=== PATIENT | female | born 1965 | race Caucasian/White ===

== ENCOUNTER 2018-02-13 19:30 | Outpatient (CLI) | payer OTHER | END 2018-02-13 19:31 | disposition home or self-care (01) | LOC: SLEEPLAB 19:30 | PROVIDERS: ATTEND Family Medicine | DX: G47.33 Obstructive sleep apnea (adult) (pediatric) (principal); K21.9 Gastro-esophageal reflux disease without esophagitis; G47.10 Hypersomnia, unspecified; G47.00 Insomnia, unspecified; R06.83 Snoring; Z68.31 Body mass index [BMI] 31.0-31.9, adult | CPT/HCPCS: 95811 ==

== ENCOUNTER 2018-08-28 07:02 | Outpatient (CLI) | payer OTHER ==
[2018-08-28] MEDS ORDERED: Gadobenate Dimeglumine 529 MG/1 ML (20ML VIAL) ONE (09:00)
--- NOTE | 2018-08-28 09:19 | RAD ---
CERVICAL SPINE 3 VIEWS: HISTORY: Neck pain with bilateral shoulder and arm pain. Postop surgical change. COMPARISON: 10/27/2017. FINDINGS: Three views of the cervical spine are performed. Anterior fusion changes are noted at C5-C6 and C6-C 7, stable from prior study. No significant malalignment. There are some generalized spondylosis duane nges. No prevertebral swelling. The tip of the odontoid and portions of C1 are obscured on the AP o pen mouth view. No abnormal prevertebral soft tissue swelling. IMPRESSION: Stable postoperative changes at C5-C6 and C6-7. Generalized spondylosis. POS: GUERRERO
--- NOTE | 2018-08-28 10:34 | MRI ---
MRI OF CERVICAL SPINE WITH AND WITHOUT CONTRAST: DATE: 08/28/2018. COMPARISON: None. HISTORY: Cervical spondylosis with myelopathy, neck pains, spasm, numbness and tingling in bilateral upper ext remities. TECHNIQUE: Multiplanar, multisequence MR imaging of cervical spine obtained with and without contrast. FINDINGS: The sagittal STIR imaging is limited secondary to patient motion artifact. No focal area of osseous marrow edema noted on sagittal STIR imaging. Postoperative hardware with associated artifact noted at C-6 and C6-7. Straightening of normal cervical lordosis noted. No anterolisthesis or retrolisthesis. No preverteb ral soft tissue abnormality. Craniocervical junction appears unremarkable. There is mild degenerative change at the atlantoaxial interspace. C2-3: No significant central canal or neural foraminal stenosis. C3-4: No central canal or neural foraminal stenosis. C4-5: Mild disk space narrowing and mild disk bulge. No significant central canal or neural foramin al stenosis. C5-6: Minimal disk bulge with no significant central canal or neural foraminal stenosis. C6-7: Bilateral uncovertebral osteophyte formation, left greater than right. Mild bilateral neural foraminal stenosis. C7-T1: Mild disk bulge. Mild bilateral facet hypertrophy. No significant central canal or neural f oraminal stenosis. No focal area of abnormal signal intensity identified within the cervical cord. Postcontrast imaging demonstrates no abnormal enhancement involving the contents of the thecal sac, t he imaged osseous structures, or the intervertebral disks. IMPRESSION: Postoperative changes within the cervical spine as above. No significant central canal or neural for aminal stenosis noted. POS: GUERRERO
== END 2018-08-28 07:03 | disposition home or self-care (01) ==
LOC: SCSMRI 07:02
PROVIDERS: ATTEND Neurological Surgery
DX: M47.12 Other spondylosis with myelopathy, cervical region (principal); Z98.890 Other specified postprocedural states
CPT/HCPCS: 72040; 72156

== ENCOUNTER 2019-11-09 09:26 | Outpatient (CLI) | payer OTHER ==
--- NOTE | 2019-11-09 12:20 | MRI ---
MRI LUMBAR SPINE WITHOUT CONTRAST: Date: 11/09/2019 COMPARISON: None. HISTORY: Low back pain with radiculopathy involving bilateral hips and buttocks. TECHNIQUE: Multiplanar, multisequence MR imaging of lumbar spine obtained without contrast. FINDINGS: The sagittal STIR imaging demonstrates no focal area of osseous marrow edema. Lumbar vertebral body height and alignment appears within normal limits. On the basis of five lumbar-type vertebral bodies, the conus medullaris terminates at the T12-L1 leve l. T12-L1: Intervertebral disc height and signal intensity within normal limits with no significant cent ral canal or neural foraminal stenosis. L1-2: Intervertebral disc height and signal intensity within normal limits. No significant central c anal or neural foraminal stenosis. L2-3: Mild bilateral facet hypertrophy. Intervertebral disc height and signal intensity within lauren l limits with no significant central canal or neural foraminal stenosis. L3-4: Minimal disc space narrowing. Mild bilateral facet hypertrophy. No significant central canal o r neural foraminal stenosis. L4-5: Bilateral facet hypertrophy, left greater than right. No significant central canal or neural f oraminal stenosis. L5-S1: Very small right paracentral disc protrusion with associated annular tear. No significant julita tral canal or neural foraminal stenosis. Incidental note is made of diverticulosis of the sigmoid colon, only partially visualized on this exa m. IMPRESSION: Mild lumbar spine degenerative change with no significant central canal or neural foraminal stenosis. POS: LARISA
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
== END 2019-11-09 09:27 | disposition home or self-care (01) ==
LOC: SCSMRI 09:26
PROVIDERS: ATTEND Family Medicine
DX: M54.5 Low back pain (principal); M47.816 Spondylosis without myelopathy or radiculopathy, lumbar region; M89.9 Disorder of bone, unspecified
CPT/HCPCS: 72146; 72148

== ENCOUNTER 2019-11-15 08:12 | Outpatient (CLI) | payer OTHER ==
--- NOTE | 2019-11-15 14:05 | MRI ---
MRI RIGHT SHOULDER WITH AND WITHOUT IV CONTRAST: Date: 11/15/2019 PROVIDED CLINICAL HISTORY: Mass seen on thoracic spine MRI. FINDINGS: There is a fusiform fluid signal intensity mass with peripheral enhancement seen within the central a spects of the medial supraspinatus muscle. This measures about 5.7 cm in transverse dimension x about 9.0 mm in craniocaudal dimension x about 13.0 mm in AP dimension. There is no evidence for central s olid enhancement, concerning septation, or mural nodule. There is conspicuous acromioclavicular joint osteoarthrosis which produces mass effect upon the subja cent supraspinatus. There is greater than physiologic subacromial/subdeltoid bursal fluid. There is a small partial thickness low grade undersurface tear involving the anterior distal supraspinatus tend on at the footplate. Components of the rotator cuff appear otherwise intact. The amount of fluid with in the glenohumeral joint appears physiologic. There is diffuse mild increased signal intensity on the fluid-sensitive sequences involving the poste rior deltoid muscle, as well as the infraspinatus muscle. No additional concerning muscular signal ab normality is apparent. Regional marrow signal appears unremarkable. IMPRESSION: 1. Findings compatible with intramuscular ganglion cyst involving the supraspinatus muscle, correspo nding to the MRI finding. No concerning features are evident. 2. Small partial thickness undersurface tear, low grade, involving the anterior distal supraspinatus tendon at the footplate. 3. Acromioclavicular joint osteoarthrosis with effacement of the subjacent supraspinatus and greater than physiologic subacromial/subdeltoid bursal fluid that may reflect bursitis. Correlate with rashard rns for subacromial impingement. 4. Signal alteration involving infraspinatus and posterior deltoid muscles, which could reflect sebastian ges related to denervation. Muscular strain or nonspecific myositis could also be considered. POS: JACQUE
== END 2019-11-15 08:13 | disposition home or self-care (01) ==
LOC: SCSMRI 08:12
PROVIDERS: ATTEND Family Medicine
DX: M75.91 Shoulder lesion, unspecified, right shoulder (principal); M75.111 Incomplete rotator cuff tear or rupture of right shoulder, not specified as traumatic; M19.011 Primary osteoarthritis, right shoulder; R93.7 Abnormal findings on diagnostic imaging of other parts of musculoskeletal system

== ENCOUNTER 2024-06-01 08:44 | Outpatient (CLI) | payer OTHER | END 2024-06-01 08:45 | disposition home or self-care (01) | LOC: SCSMRI 08:44 | PROVIDERS: ATTEND Specialist | DX: M23.91 Unspecified internal derangement of right knee (principal); M71.21 Synovial cyst of popliteal space [Baker], right knee; S83.241A Other tear of medial meniscus, current injury, right knee, initial encounter ==

== ENCOUNTER 2025-06-26 20:18 | Inpatient (IN) | payer BC ==
[2025-06-26 22:05] VITALS: BMI 31.6
[2025-06-26] MEDS ORDERED: Ondansetron PF 4 MG/2 ML Vial IVP PRN (23:08)
[2025-06-26] MEDS ORDERED: Acetaminophen 325 MG TAB PO PRN (23:08)
[2025-06-26] MEDS: Ketorolac Tromethamine 30 MG (1 mL) VIAL IVP PRN (23:55)
[2025-06-27] MEDS: Pantoprazole 40 MG DR.TAB PO SCH ×2 (00:02→07:43)
[2025-06-27 05:26] LABS: #Basophils 0.06 10x3/uL (0.0-0.2); #Eosinophils 0.18 10x3/uL (0.0-0.7); #Monocytes 0.66 10x3/uL (0.11-0.59); #Neutrophils 4.39 10x3/uL (1.40-6.50); %Basophils 0.7 % (0.0-1.0); %Eosinophils 2.1 % (0.0-10.0); %Lymphocytes 36.9 % (21.0-51.0); %Monocytes 7.8 % (0.0-10.0); %Neutrophils 52.3 % (42.0-75.0); Hematocrit 37.2 % (36.0-47.0); Hemoglobin 11.8 g/dL (12.0-16.0); Mean Corpuscular Hemoglobin 29.0 pg (27.0-31.0); Mean Corpuscular Volume 91.4 fL (78.0-98.0); Platelet Count 208 10x3/uL (130-400); Red Blood Cell (RBC) Count 4.07 mill/uL (4.20-5.40); White Blood Cell (WBC) Count 8.41 10x3/uL (4.8-10.8)
[2025-06-27 05:38] LABS: Anion Gap 12 mmol/L (10-20); BUN (Urea Nitrogen) 16 mg/dL (9.8-20.1); Calc. Creatinine Clearance 112 mL/min (70-130); Calcium 8.3 mg/dL (7.8-10.44); Carbon Dioxide 26 mmol/L (22-29); Chloride 107 mmol/L (98-107); Glucose 94 mg/dL (70-105); Potassium 4.3 mmol/L (3.5-5.1); Sodium 141 mmol/L (136-145)
[2025-06-27] MEDS: Mometasone 100 MCG HFA INHALER (RT USE) INH SCH (07:09)
[2025-06-27] MEDS: Senokot S 8.6-50 MG TAB PO SCH (07:42)
[2025-06-27] MEDS: lamoTRIgine 100 MG TAB PO SCH (07:43)
[2025-06-27] MEDS: Enoxaparin 40 MG (0.4 mL) SYRINGE SC SCH (07:44)
[2025-06-27] MEDS ORDERED: Dextroamphetamine/Amphetamine [Adderall] 30 MG Tablet PO SCH (09:00)
[2025-06-27] MEDS: Rosuvastatin 20 MG TAB PO SCH (20:22)
[2025-06-28 05:38] LABS: #Basophils 0.06 10x3/uL (0.0-0.2); #Eosinophils 0.20 10x3/uL (0.0-0.7); #Monocytes 0.55 10x3/uL (0.11-0.59); #Neutrophils 3.21 10x3/uL (1.40-6.50); %Basophils 0.8 % (0.0-1.0); %Eosinophils 2.8 % (0.0-10.0); %Lymphocytes 43.2 % (21.0-51.0); %Monocytes 7.8 % (0.0-10.0); %Neutrophils 45.3 % (42.0-75.0); Hematocrit 36.5 % (36.0-47.0); Hemoglobin 11.4 g/dL (12.0-16.0); Mean Corpuscular Hemoglobin 28.9 pg (27.0-31.0); Mean Corpuscular Volume 92.6 fL (78.0-98.0); Platelet Count 216 10x3/uL (130-400); Red Blood Cell (RBC) Count 3.94 mill/uL (4.20-5.40); White Blood Cell (WBC) Count 7.09 10x3/uL (4.8-10.8)
[2025-06-28 05:48] LABS: Anion Gap 11 mmol/L (10-20); BUN (Urea Nitrogen) 15 mg/dL (9.8-20.1); Calc. Creatinine Clearance 100 mL/min (70-130); Calcium 8.4 mg/dL (7.8-10.44); Carbon Dioxide 26 mmol/L (22-29); Chloride 115 mmol/L (98-107); Glucose 115 mg/dL (70-105); Potassium 4.4 mmol/L (3.5-5.1); Sodium 148 mmol/L (136-145)
[2025-06-28] MEDS: HYDROcodone/Acetaminophen 5/325 mg Tablet PO PRN (08:05)
[2025-06-28] MEDS ORDERED: Mometasone 100 MCG HFA INHALER (RT USE) INH PRN (10:30)
[2025-06-28 11:34] VITALS: BP 144/80; TEMP 98
[2025-06-29] MEDS ORDERED: PNEUMOC 20-VAL CONJ-DIP CRM/PF 0.5 ML SYRINGE IM ONE (09:00)
== END 2025-06-28 15:48 | disposition home or self-care (01) | DRG 392 ==
LOC: T4-B 21:59
PROVIDERS: ADMIT Internal Medicine; ATTEND Hospitalist
DX: K57.32 Diverticulitis of large intestine without perforation or abscess without bleeding (principal); E78.5 Hyperlipidemia, unspecified; G89.29 Other chronic pain; G47.33 Obstructive sleep apnea (adult) (pediatric); R79.89 Other specified abnormal findings of blood chemistry; Z90.49 Acquired absence of other specified parts of digestive tract; Z87.891 Personal history of nicotine dependence; Z79.899 Other long term (current) drug therapy
CPT/HCPCS: 36415; 80048; 85025; 86141; J1650; J1885; J2543; J7120